=== PATIENT | female | born 1955 | race African-American/Black ===

== ENCOUNTER 2020-09-30 00:46 | Inpatient (IN) | payer MEDICARE, MEDICAID ==
[~2020-09-30] VITALS: Ht 152.4 cm; Wt 56.2 kg
[2020-09-30] MEDS ORDERED: SODIUM CHLORIDE FLUSH 10ML SYR IVF ONE (01:00)
[2020-09-30] MEDS ORDERED: NITROGLYCERIN OINT 2%, 1GM TP ONE ×2 (01:00→01:26)
[2020-09-30] MEDS ORDERED: ASPI-963 PO (01:16)
[2020-09-30] MEDS ORDERED: SUCR500T PO (01:16)
[2020-09-30] MEDS ORDERED: OLME20TA17 PO (01:16)
[2020-09-30] MEDS ORDERED: CYCL5TAB PO (01:16)
[2020-09-30] MEDS ORDERED: CARV-39 PO (01:16)
[2020-09-30] MEDS ORDERED: CLON1PAT7 TD (01:16)
[2020-09-30] MEDS ORDERED: CLON0.1T22 PO (01:16)
[2020-09-30] MEDS ORDERED: CALC500T29 PO (01:16)
--- NOTE | 2020-09-30 01:16 | NUR ---
REPORT FROM ANGI CASTELLANOS. PT TRANSPORTED HERE FOR SOB AND POSSIBLE NEED FOR DIALYSIS. PT HAS HTN AND IS HYPERTENSIVE ON ARRIVAL. OTHER VSS. LAB AT BEDSIDE. CALL LIGHT IN REACH
[2020-09-30 01:32] LABS: BASOPHILS % (AUTO) 1 % (0-1); EOSINOPHILS % (AUTO) 1 % (1-7); LYMPHOCYTES % (AUTO) 10 % (22-44); MEAN CORPUSCULAR HEMOGLOBIN 26.7 pg (27.0-34.8); MEAN CORPUSCULAR HGB CONC 32.1 g/dL (32.4-35.8); MEAN PLATELET VOLUME 7.3 fL (7.4-10.4); MONOCYTES % (AUTO) 4 % (2-9); NEUTROPHILS % (AUTO) 84 % (42-75); PLATELET COUNT 178 x10^3/uL (130-400); RED BLOOD COUNT 4.35 x10^6/uL (3.82-5.3); RED CELL DISTRIBUTION WIDTH 15.4 % (9.6-15.2)
[2020-09-30 01:33] LABS: MD NO
[2020-09-30 01:43] LABS: ALANINE AMINOTRANSFERASE 17 U/L (12-78); ALBUMIN 3.4 g/dL (3.4-5.0); ANION GAP 7 mmol/L (5-15); CALCIUM 8.3 mg/dL (8.5-10.1); CHLORIDE 95 mmol/L (98-107)
[2020-09-30 01:47] LABS: ALKALINE PHOSPHATASE 63 U/L (45-117); BILIRUBIN,TOTAL 0.8 mg/dL (0.2-1.0); TOTAL PROTEIN 8.1 g/dL (6.4-8.2)
[2020-09-30 01:49] LABS: TROPONIN I 0.222 ng/mL (0.000-0.045)
[2020-09-30] MEDS ORDERED: ONDANSETRON 2MG/ML, 2ML ONE (02:19)
[2020-09-30] MEDS ORDERED: ONDANSETRON 2MG/ML, 2ML IVPush ONE (02:30)
[2020-09-30] MEDS ORDERED: ONDANSETRON 2MG/ML, 2ML IVPush PRN (03:00)
[2020-09-30] MEDS ORDERED: morphine SULFATE 10 MG/ML, 1ML IVPush PRN (03:00)
[2020-09-30] MEDS ORDERED: ACETAMINOPHEN 325 MG TABLET PO PRN (03:00)
[2020-09-30] MEDS ORDERED: DOCUSATE 100 MG CAPSULE PO PRN (03:00)
--- NOTE | 2020-09-30 03:21 | NUR ---
LATE ENTRY: PT BP NOT IMPROVED WITH NITRO. PT BECAME HYPOXIC AND BEGAN VOMITING AND WAS DIAPHORETIC. NECARDIPINE DRIP STARTED AND PT MOVED TO TRAUMA 3. PT PLACED ON BIPAP. DRIP TITRATED X 2 AND IS 7.5 MG/HR. PT TOLERATING BIPAP AND PRESSURE IMPROVED. 2ND PIV PLACED. REPORT TO LILI CASTELLANOS
[2020-09-30 05:00] LABS: BASOPHILS % (AUTO) 1 % (0-1); EOSINOPHILS % (AUTO) 1 % (1-7); LYMPHOCYTES % (AUTO) 8 % (22-44); MEAN CORPUSCULAR HEMOGLOBIN 26.4 pg (27.0-34.8); MEAN CORPUSCULAR HGB CONC 31.9 g/dL (32.4-35.8); MEAN PLATELET VOLUME 7.2 fL (7.4-10.4); MONOCYTES % (AUTO) 3 % (2-9); NEUTROPHILS % (AUTO) 87 % (42-75); PLATELET COUNT 178 x10^3/uL (130-400); RED BLOOD COUNT 4.53 x10^6/uL (3.82-5.3); RED CELL DISTRIBUTION WIDTH 15.4 % (9.6-15.2)
[2020-09-30 05:07] LABS: ALBUMIN 3.6 g/dL (3.4-5.0); ANION GAP 7 mmol/L (5-15); CALCIUM 8.6 mg/dL (8.5-10.1); CHLORIDE 96 mmol/L (98-107)
[2020-09-30 05:12] LABS: ALANINE AMINOTRANSFERASE 19 U/L (12-78); ALKALINE PHOSPHATASE 66 U/L (45-117); BILIRUBIN,TOTAL 0.9 mg/dL (0.2-1.0); CREATININE 5.39 mg/dL (0.55-1.02); TOTAL PROTEIN 8.4 g/dL (6.4-8.2)
[2020-09-30 05:16] LABS: MD NO
[2020-09-30] MEDS: HEPARIN 5,000 UNITS/ML, 1ML SQ SCH ×3 (06:24→21:52)
[2020-09-30] MEDS ORDERED: FAMOTIDINE 20 MG/2 ML IVPush SCH (09:00)
[2020-09-30] MEDS ORDERED: cloniDINE 0.1MG PATCH TD SCH (09:30)
[2020-09-30 09:36] LABS: TROPONIN I 0.311 ng/mL (0.000-0.045)
[2020-09-30] MEDS: CARVEDILOL 25 MG TABLET PO SCH ×2 (09:49→21:52)
[2020-09-30] MEDS: ASPIRIN 81 MG TABLET EC PO SCH (09:49)
[2020-09-30] MEDS: VALSARTAN 160 MG TABLET PO SCH (09:49)
[2020-09-30 12:03] LABS: ABSOLUTE RETICS # 0.026 x10^6/uL (0.5-2.5); RED BLOOD COUNT 4.27 x10^6/uL (3.82-5.3); RETICULOCYTE COUNT % 0.61 % (0.5-1.5)
[2020-09-30 14:39] LABS: CALCIUM 8.6 mg/dL (8.5-10.1)
[2020-09-30 20:09] VITALS: BP 156/80
[2020-09-30 21:50] VITALS: BP 139/72
[2020-10-01 01:20] VITALS: BP 164/80
[2020-10-01 05:37] LABS: BASOPHILS % (AUTO) 1 % (0-1); EOSINOPHILS % (AUTO) 8 % (1-7); LYMPHOCYTES % (AUTO) 23 % (22-44); MEAN CORPUSCULAR HEMOGLOBIN 26.9 pg (27.0-34.8); MEAN CORPUSCULAR HGB CONC 32.4 g/dL (32.4-35.8); MEAN PLATELET VOLUME 7.5 fL (7.4-10.4); MONOCYTES % (AUTO) 8 % (2-9); NEUTROPHILS % (AUTO) 60 % (42-75); PLATELET COUNT 166 x10^3/uL (130-400); RED BLOOD COUNT 4.19 x10^6/uL (3.82-5.3); RED CELL DISTRIBUTION WIDTH 15.2 % (9.6-15.2)
[2020-10-01 05:39] LABS: MD NO
[2020-10-01 05:54] LABS: CHLORIDE 98 mmol/L (98-107)
[2020-10-01 06:04] LABS: ALANINE AMINOTRANSFERASE 15 U/L (12-78); ALBUMIN 3.3 g/dL (3.4-5.0); ALKALINE PHOSPHATASE 58 U/L (45-117); ANION GAP 7 mmol/L (5-15); CALCIUM 8.6 mg/dL (8.5-10.1); CREATININE 4.96 mg/dL (0.55-1.02); TOTAL PROTEIN 7.9 g/dL (6.4-8.2)
[2020-10-01] MEDS: HEPARIN 5,000 UNITS/ML, 1ML SQ SCH ×2 (06:16→14:00)
[2020-10-01 07:20] VITALS: BP 184/108
[2020-10-01] MEDS: CARVEDILOL 25 MG TABLET PO SCH ×3 (07:57→12:08)
[2020-10-01] MEDS: ASPIRIN 81 MG TABLET EC PO SCH ×2 (07:57→09:00)
[2020-10-01] MEDS: VALSARTAN 160 MG TABLET PO SCH ×3 (07:58→12:07)
[2020-10-01 12:48] VITALS: BP 194/110
== END 2020-10-01 14:50 | disposition home or self-care (01) | DRG 280 ==
LOC: ED 02:37 → EDIP 02:49 → CCU 04:33 → 3N 16:06 → DCLOUNGE 10-01 14:38
PROVIDERS: ADMIT Family Medicine; ATTEND Family Medicine
PROC: 5A09357 Assistance with Respiratory Ventilation, Less than 24 Consecutive Hours, Continuous Positive Airway Pressure (ICD-10-PCS; principal; 2020-09-30)
PROC: 5A0935A Assistance with Respiratory Ventilation, Less than 24 Consecutive Hours, High Flow/Velocity Cannula (ICD-10-PCS; 2020-09-30)
DX: I13.2 Hypertensive heart and chronic kidney disease with heart failure and with stage 5 chronic kidney disease, or end stage renal disease (principal); I21.A1 Myocardial infarction type 2; J96.01 Acute respiratory failure with hypoxia; N18.6 End stage renal disease; I50.21 Acute systolic (congestive) heart failure; E87.1 Hypo-osmolality and hyponatremia; I16.1 Hypertensive emergency; N17.9 Acute kidney failure, unspecified; Q61.2 Polycystic kidney, adult type; Z20.822 Contact with and (suspected) exposure to COVID-19; D63.8 Anemia in other chronic diseases classified elsewhere; Z79.82 Long term (current) use of aspirin; Z87.891 Personal history of nicotine dependence; Z99.2 Dependence on renal dialysis; Z79.899 Other long term (current) drug therapy; Z88.1 Allergy status to other antibiotic agents; Z88.8 Allergy status to other drugs, medicaments and biological substances
CPT/HCPCS: 36415; 80053; 82306; 82310; 82728; 83540; 83550; 83880; 83970; 84100; 84484; 85025; 85045; 86705; 86706; 87081; 87340; 90935; 93005; 94660; 96374; 99291; G0378; J1644; J2405; J7050